=== PATIENT | male | born 1940 | race Caucasian/White ===

== ENCOUNTER 2017-01-07 06:27 | Emergency (ER) | payer MEDICARE, MEDICAID ==
[~2017-01-07 06:27] MED LIST: ASA CHILDREN'S81 MG PO; DALIRESP500 MCG PO; GLUCOPHAGE1000 MG PO; GLUCOTROL DPS10 MG PO; JANUVIA100 MG PO; LEVAQUIN DPS500 MG PO; MAALOX DPS30 ML PO; NEURONTIN DPS300 MG PO; PRILOSEC DPS20 MG PO; PROVENTIL HFA6.7 GM IH; SURFAK DPS240 MG PO; TYLENOL DPS325 MG PO; XANAX DPS0.25 MG PO
--- NOTE | 2017-01-14 18:47 | ER ---
ADMIT: 01/07/2017 RM/LOC: ER [facility] MR#: [id number] [place], [place] [id number] DEVON LAMBERT [address] [place] [address] Emergency Room Report SEX: M AGE: 76 : 1940 DATE: 01/07/2017 The patient is a 76-year-old male with past medical history of developmental delay, came to ER with chief complaint of one episode of loose stool and few seconds of right lower quadrant pain which just resolved by itself. The patient has a history of diabetes. The patient at the moment, denies any abdominal pain, chest pain, headaches, visual changes or nausea or vomiting. The patient has stable vitals here and blood sugar was 260. Head and neck were normal. Chest was clear bilaterally. Normal heart sounds. Abdomen was soft and nontender, no rebound. The patient tolerated liquid and is in no pain or distress. The patient is stable to be discharged home. The patient was advised to take fluid as needed and follow up with the primary doctor as needed. Forrest Sanchez MD/ darion JOB #: [id number] CC: Forrest Sanchez MD, Attending Physician Frankie Coronado, Family Physician
== END 2017-01-07 07:45 | disposition home or self-care (01) ==
LOC: ER 06:27
DX: K52.9 Noninfective gastroenteritis and colitis, unspecified (principal); E11.9 Type 2 diabetes mellitus without complications